=== PATIENT | male | born 1980 | race Caucasian/White ===

== ENCOUNTER 2017-08-13 03:19 | Emergency (ER) | payer MEDICAID ==
[~2017-08-13] VITALS: Ht 172.7 cm; Wt 118.2 kg
[2017-08-13 04:40] VITALS: BP 154/93
[2017-08-13 04:55] LABS: AMPHET/METH SCREEN,URINE NEGATIVE (NEGATIVE); BARBITURATE SCREEN, URINE NEGATIVE (NEGATIVE); BENZODIAZEPINES SCREEN,URINE NEGATIVE (NEGATIVE); CANNABINOID SCREEN,URINE POSITIVE (NEGATIVE); COCAINE SCREEN,URINE POSITIVE (NEGATIVE); METHADONE SCREEN, URINE NEGATIVE (NEGATIVE); OPIATE SCREEN,URINE NEGATIVE (NEGATIVE)
[2017-08-13 04:56] LABS: PHENCYCLIDINE SCREEN,URINE NEGATIVE (NEGATIVE)
== END 2017-08-13 04:43 | disposition home or self-care (01) ==
LOC: EMS 03:20
DX: F22 Delusional disorders (principal); F41.9 Anxiety disorder, unspecified; F12.90 Cannabis use, unspecified, uncomplicated
CPT/HCPCS: 99285